=== PATIENT | male | born 1965 | race Caucasian/White ===

== ENCOUNTER 2018-05-04 16:09 | Emergency (ER) | payer OTHER, BC ==
[~2018-05-04] VITALS: Ht 172.7 cm; Wt 144.2 kg
[~2018-05-04 16:09] MED LIST: LIDOCAINE HCL100 ML MT; MELOXICAM15 MG PO; PENICILLIN V P500 MG PO; TRAMADOL HCL50 MG PO; ZESTRIL10 MG PO
[2018-05-04] MEDS ORDERED: NAPROSYN500 MG PO (17:11)
== END 2018-05-04 17:48 | disposition home or self-care (01) ==
LOC: ED 16:09
DX: S86.011A Strain of right Achilles tendon, initial encounter (principal); I10 Essential (primary) hypertension; Z87.891 Personal history of nicotine dependence; Z79.899 Other long term (current) drug therapy; X58.XXXA Exposure to other specified factors, initial encounter; Y93.02 Activity, running
CPT/HCPCS: 73630; 73650; 99283

== ENCOUNTER 2018-07-22 09:05 | Emergency (ER) | payer OTHER, BC ==
[~2018-07-22] VITALS: Ht 172.7 cm; Wt 149.7 kg
[~2018-07-22 09:05] MED LIST changes: +ACETAMINOPHEN-1 EAC1 PO; +BACTRIM DS TAB1 EACH PO; +CEPHALEXIN500 MG PO; +NAPROSYN500 MG PO
== END 2018-07-22 11:05 | disposition home or self-care (01) ==
LOC: ED 09:05
DX: S96.811A Strain of other specified muscles and tendons at ankle and foot level, right foot, initial encounter (principal); I10 Essential (primary) hypertension; Z87.891 Personal history of nicotine dependence; Z88.6 Allergy status to analgesic agent; Z88.5 Allergy status to narcotic agent; Z79.899 Other long term (current) drug therapy; X50.9XXA Other and unspecified overexertion or strenuous movements or postures, initial encounter
CPT/HCPCS: 73630; 99283

== ENCOUNTER 2018-07-24 09:19 | Emergency (ER) | payer BC, OTHER ==
[~2018-07-24] VITALS: Ht 172.7 cm; Wt 149.7 kg
--- OUTSIDE RECORDS SUMMARY | 2018-07-24 09:24 | XMS ---
PreManage Notification: ANG STEELE Security Taxation Agent Events No recent Security Events currently on file CRITERIA MET - [facility] - 2 Visits in 30 Days CARE PROVIDERS ESTELLA LOPEZ Student in an Organized Health Care [facility] Education/Training Program PHONE: [phone] Estella Lopez Treatment Current [facility] PHONE: Unknown ESTELLA LOPEZ Primary Care 10/27/2015-Current PHONE: [phone] Ottoniel has no Care Guidelines for this patient. E.D. VISIT COUNT (12 MO.) 4 VIKTORIA Feliz TOTAL 4 NOTE: Visits indicate total known visits. ED/UCC VISIT TRACKING (12 MO.) 07/24/2018 09:20 VIKTORIA Reddy [place] TYPE: Emergency COMPLAINT: - LEFT HAND INJURY 07/22/2018 09:06 VIKTORIA Reddy [place] TYPE: Emergency COMPLAINT: - R FOOT PAIN/INJURY 05/28/2018 21:19 VIKTORIA Reddy [place] TYPE: Emergency COMPLAINT: - L FOOT PAIN DIAGNOSES: - Ingrowing nail - Essential (primary) hypertension - Pain in left ankle and joints of left foot - Other prison (current) drug therapy - Personal history of nicotine dependence 05/04/2018 16:11 VIKTORIA Reddy [place] TYPE: Emergency COMPLAINT: - R FOOT PAIN/NO INJURY DIAGNOSES: - Activity, running - Strain of right Achilles tendon, initial encounter - Pain in right ankle and joints of right foot - Exposure to other specified factors, initial encounter - Personal history of nicotine dependence - Other technician terminal and repeater (current) drug therapy - Essential (primary) hypertension INPATIENT VISIT TRACKING (12 MO.) No inpatient visits to display in this time frame [email or web address]
[2018-07-24] MEDS ORDERED: ULTRAM50 MG PO (12:11)
== END 2018-07-24 12:37 | disposition home or self-care (01) ==
LOC: ED 09:19
DX: S60.222A Contusion of left hand, initial encounter (principal); I10 Essential (primary) hypertension; Z88.5 Allergy status to narcotic agent; Z79.899 Other long term (current) drug therapy; W23.0XXA Caught, crushed, jammed, or pinched between moving objects, initial encounter; Y92.89 Other specified places as the place of occurrence of the external cause
CPT/HCPCS: 73130; 99283

== ENCOUNTER 2020-02-15 19:12 | Emergency (ER) | payer OTHER ==
[~2020-02-15] VITALS: Ht 172.7 cm; Wt 136.1 kg
[~2020-02-15 19:12] MED LIST changes: +ULTRAM50 MG PO
[2020-02-15] MEDS ORDERED: SYNTHROID150 MCG PO (19:23)
[2020-02-15] MEDS ORDERED: DOXYCYCLINE HY100 MG PO (20:14)
== END 2020-02-15 20:20 | disposition home or self-care (01) ==
LOC: ED 19:12
DX: J20.9 Acute bronchitis, unspecified (principal); I10 Essential (primary) hypertension; Z88.5 Allergy status to narcotic agent; Z79.899 Other long term (current) drug therapy
CPT/HCPCS: 71045; 99283-25

== ENCOUNTER 2020-05-03 08:45 | Day surgery (SDC) | payer OTHER ==
[~2020-05-03] VITALS: Ht 170.2 cm; Wt 150.1 kg
[~2020-05-03 08:45] MED LIST changes: +DOXYCYCLINE HY100 MG PO; +METFORMIN HCL500 MG PO; +SYNTHROID150 MCG PO; +VENTOLIN HFA18 GM INH
[2020-05-03] MEDS ORDERED: DICLOFENAC SODI75 MG PO (08:58)
--- NOTE | 2020-05-03 09:56 | NUR ---
Pt stated he was comfortable and not nervous at the upcoming procedure. I explained to him and his some expectations and that she could stay in his room. I prayed for them at the time of my visit.
--- NOTE | 2020-05-03 11:51 | NUR ---
05/03/20 1151 Willi Paez OPA REMOVED AT 1139 PATIENT REACHES HAND TO MOUTH. BP CUFF CHANGED AT 1141. MUCH HIGHER READINGS NOTED.
--- NOTE | 2020-05-03 12:24 | NUR ---
PT IS BACK TO FROM PACU. HE IS REPORTING 4/10 PAIN. HE IS TOLERATING SIPS OF WATER. AT THE BEDSIDE. CALL LIGHT WITHIN REACH. PT WOULD LIKE TO TRY SOME JELLO. NO ADDITIONAL NEEDS AT THIS TIME.
[2020-05-03] MEDS ORDERED: DILAUDID4 MG PO (12:35)
--- NOTE | 2020-05-03 13:22 | NUR ---
PT IS TOLERATING WATER AND JELLO. REPORTING A SLIGHT INCREASE IN PAIN. AT BEDSIDE. CALL LIGHT WITHIN REACH. NO ADDITIONAL NEEDS.
--- NOTE | 2020-05-03 13:34 | OR ---
[facility] [address] [place], [place] [address] Signed DATE OF OPERATION: 05/03/2020 SURGEON: Susana Siddiqui MD PREOPERATIVE DIAGNOSIS: Reducible umbilical hernia (3 cm). POSTOPERATIVE DIAGNOSIS: Reducible umbilical hernia (3 cm). PROCEDURE: Primary umbilical herniorrhaphy with intraabdominal Ventralex mesh (6.4 cm). ESTIMATED BLOOD LOSS: None. INDICATIONS: Ang is a 54-year-old gentleman at 5 feet 7 inches, 331 pounds with a body mass index of 51. He came within him with a symptomatic, but reducible umbilical hernia. Previously, he had been moving [employer] here in [place], [place]. He is now unemployed and stays at home helping to raise his 3 grandchildren. He said his continues to work. He is pretty certain the hernia is getting larger. He said he is very aware of his symptoms and the pain that he has with hernia. He also has diastasis recti and I explained to him that is not a hernia. It is a separate issue and does not require surgery. He had been to his primary care provider. He was asked to see me with respect to the above. An ultrasound of course had been ordered and it confirmed his umbilical hernia. In the office, I gave Ang a booklet on hernias and we looked that very carefully. He understands the nature of an umbilical hernia. He understands the difference between a primary suture repair and a mesh repair. We also reviewed the expected intraop and postop course. He knows there is risk including, but not limited to bleeding, infection, scarring, change in contour of the skin, damage to bowel, infection of mesh requiring removal, chronic pain and recurrent hernias. He had expressed understanding and wished to proceed. DESCRIPTION OF PROCEDURE: I met with Ang and his in our preop area. We confirmed and marked his umbilical hernia. We had reviewed the diastasis recti. He also explained that he has some right rotator cuff injury and he wanted to keep his right arm down along his side during the procedure. After this, Ang was taken into our operating room and placed in the supine position under general endotracheal tube anesthesia. He was given preoperative Electronically Signed By: SUSANA SIDDIQUI MD 05/03/20 1334 PATIENT NAME: ANG STEELE SR OPERATIVE REPORT DATE OF : 69 REPORT #: [id number] PHYSICIAN: SUSANA SIDDIQUI MD PCP: ESTELLA GROSS PA-C REPORT IS CONFIDENTIAL AND NOT TO BE RELEASED WITHOUT AUTHORIZATION [facility] [address] [place], [place] [address] Signed antibiotics along with subcutaneous heparin. SCDs were utilized. He was then prepped and draped in the usual sterile fashion. We utilized our standard transverse infraumbilical incision. We carried this down around the hernia bluntly and with the help of the cautery. The entire hernia sac was excised and passed off the field. The fat had been reduced into the abdomen. We chose our 6.4 cm round Ventralex mesh and we placed that in the abdominal cavity and brought up, flushed against posterior abdominal wall. The umbilical fascial defect was then closed transversely with a running #1 Prolene suture. Several passes of the suture went through the tab on the mesh to help hold it in place. The tab was cut flush with the abdominal wall and discarded. Local anesthetic was injected in the abdominal wall and subcutaneous tissues. The wound was irrigated and suctioned out until clear. The umbilical skin was held down to the midline fascia with an interrupted 2-0 PDS suture. The dermis was reapproximated with interrupted 3-0 subcuticular Monocryl sutures. The skin edges were reapproximated with a running 6-0 fast absorbing plain gut suture. Dry gauze and tape were then applied. After this, Ang was awakened from his anesthesia, extubated in the OR, and taken to the recovery room in stable condition. Susana Siddiqui MD ALB/MODL /[id number] cc: MANGO Tovar MD Copies: SUSANA SIDDIQUI MD ~ Electronically Signed By: SUSANA SIDDIQUI MD 05/03/20 1334 PATIENT NAME: ANG STEELE SR OPERATIVE REPORT DATE OF : 69 REPORT #: [id number] PHYSICIAN: SUSANA SIDDIQUI MD PCP: ESTELLA GROSS PA-C REPORT IS CONFIDENTIAL AND NOT TO BE RELEASED WITHOUT AUTHORIZATION
== END 2020-05-03 13:45 | disposition home or self-care (01) ==
LOC: DS 08:45
PROVIDERS: Colon & Rectal Surgery
PROC: 0WUF0JZ Supplement Abdominal Wall with Synthetic Substitute, Open Approach (ICD-10-PCS; principal; 2020-05-03 10:45)
DX: K42.9 Umbilical hernia without obstruction or gangrene (principal); I10 Essential (primary) hypertension; E11.9 Type 2 diabetes mellitus without complications; F17.220 Nicotine dependence, chewing tobacco, uncomplicated; Z79.899 Other long term (current) drug therapy; Z79.84 Long term (current) use of oral hypoglycemic drugs; Z88.5 Allergy status to narcotic agent; Z91.048 Other nonmedicinal substance allergy status
CPT/HCPCS: 00750; C1781; J0330; J0690; J1100; J1644; J1885; J2250; J2405; J2704; J2765; J3010; J7121

== ENCOUNTER 2024-02-20 14:09 | Emergency (ER) | payer OTHER ==
[~2024-02-20] VITALS: Ht 170.2 cm; Wt 151.6 kg
[~2024-02-20 14:09] MED LIST changes: +DICLOFENAC SODI75 MG PO; +DILAUDID4 MG PO; +LISINOPRIL-HCT1 EACH PO
[2024-02-20] MEDS ORDERED: ACETAMINOPHEN 500 MG TAB PO ONE (15:15)
[2024-02-20] MEDS ORDERED: IBUPROFEN 600 MG TAB PO ONE (15:15)
[2024-02-20] MEDS ORDERED: methocarbamoL 500 MG TABLET PO ONE (15:15)
[2024-02-20] MEDS ORDERED: TRAMADOL HCL50 MG PO (15:23)
[2024-02-20] MEDS ORDERED: MELOXICAM15 MG PO (15:23)
[2024-02-20] MEDS ORDERED: METHOCARBAMOL750 MG PO (15:23)
[2024-02-20 15:32] VITALS: BP 159/68
== END 2024-02-20 15:32 | disposition home or self-care (01) ==
LOC: ED 14:09
DX: S29.9XXA Unspecified injury of thorax, initial encounter (principal); I10 Essential (primary) hypertension; X50.0XXA Overexertion from strenuous movement or load, initial encounter; Z87.891 Personal history of nicotine dependence; Z91.09 Other allergy status, other than to drugs and biological substances; Z88.5 Allergy status to narcotic agent; Z79.84 Long term (current) use of oral hypoglycemic drugs; Z79.899 Other long term (current) drug therapy
CPT/HCPCS: 71045; 99283-25; A9270